=== PATIENT | male | born 1940 | race Caucasian/White ===

== ENCOUNTER → 2022-12-16 | Outpatient (CLI) | payer MEDICARE ==
--- NOTE | 2022-12-16 17:47 | Diagnostic Imaging Report ---
INDICATION: Right shoulder pain AP, oblique, and transscapular views of the right shoulder are obtained. No fracture or acute bony abnormality is seen. There are postoperative changes with anchor screws in the humeral head. There is minimal distance between the acromion and humeral head suggesting chronic rotator cuff pathology. IMPRESSION: Postoperative changes and chronic changes in right shoulder with no overt acute abnormality. Dictated by: Dictated on workstation # [id number]
== END ==
LOC: RAD FS 09:48
PROVIDERS: ATTEND Family Medicine
DX: M25.511 Pain in right shoulder (principal); Z98.890 Other specified postprocedural states
CPT/HCPCS: 73030